=== PATIENT | male | born 1995 | race Caucasian/White ===

== ENCOUNTER 2023-12-28 14:50 | Outpatient (AMB) | payer OTHER, SELFPAY ==
--- NOTE | 2023-12-28 14:51 | MHC.OFFWIV ---
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 Happened 12/07 Patient Tobacco Use Status: Never used Tobacco Allergies No Known Allergies Allergy (Verified 12/28/23 14:57) Do you need a note to return to daycare/school/sports/work: No HPI HPI Comments History of Present Illness Details Patient is a 28-year-old male who injured his right 4th and 5th toe on 12/08/2019 days ago. He states he was walking down the stairs and they had a back massage her mat at the bottom of stairs the has round balls and it. When he stepped down, he stepped right up against 1 of the balls with his 4th and 5th toe and they went straight up with the rest of his foot was flat. He felt immediate pain but was able to walk on it. He has been walking on it ever since and states it does not hurt so much to walk on it but more when he steps off of it he feels sharp shooting intense pain. He has not taken any medications or tried to rest it. He does not have a primary care doctor at this time because he has not established care with one. [facility] Social History Patient Tobacco Use Status: Never used Tobacco Review of Systems Const All systems reviewed & are unremarkable except as noted in HPI and below Physical Exam Vital Signs: Last Vital Signs Temp 98.9 F 12/28/23 14:52 Pulse 91 12/28/23 14:52 BP 128/84 12/28/23 14:52 Pulse Ox 97 12/28/23 14:52 Oxygen Delivery Method Room Air 12/28/23 14:52 BMI result Body Mass Index 39.3 Const General: cooperative, healthy appearing, comfortable and no acute distress Orientation/consciousness: patient oriented x3 Limitations: no limitations HEENT Head: Yes normal to inspection Resp Effort & Inspection: normal respiratory effort and able to speak in complete sentences Neuro General: patient oriented x3 Extrem Right lower extremity: foot Details: normal capillary refill, normal to inspection, toes with normal ROM, no edema, vascular exam Details: normal capillary refill, tendon exam Details: active flexion normal and active extension normal and motor-sensory exam Details: light-touch normal; no tenderness, no unusual warmth, no abrasion, no laceration and no ecchymosis Assessment & Plan Assessment & Plan (1) Sprain of fifth toe, right: Code(s): S93.504A - Unspecified sprain of right lesser toe(s), initial encounter Qualifiers: Encounter type: initial encounter Qualified Code(s): S93.504A - Unspecified sprain of right lesser toe(s), initial encounter Plan: X-ray not indicated, patient agreed. Patient with a walking boot and recommended he rest it, use ice as needed and ibuprofen as needed. Recommended follow up with his PCP or an orthopedic doctor if his pain does not improve after resting it with the boot for 1-2 weeks. (2) Sprain of fourth toe of right foot: Code(s): S93.504A - Unspecified sprain of right lesser toe(s), initial encounter Qualifiers: Encounter type: initial encounter Qualified Code(s): S93.504A - Unspecified sprain of right lesser toe(s), initial encounter Plan: See above Plan See above Coding Level of Care Code New Pt Level 3 (27012) Diagnoses Sprain of fifth toe of right foot, initial encounter S93.504A Encounter type: initial encounter Sprain of fourth toe of right foot, initial encounter S93.504A Encounter type: initial encounter
[2023-12-28 14:52] VITALS: BP 128/84; PULSE 91; TEMP 37.2; O2SAT 97; BMI 39.3
== END 2023-12-28 15:59 | disposition home or self-care (01) ==
PROVIDERS: Visit Provider Physician Assistant
DX: S93.504A Unspecified sprain of right lesser toe(s), initial encounter (principal)
CPT/HCPCS: 99203